=== PATIENT | female | born 1955 | race Caucasian/White ===

== ENCOUNTER 2025-10-11 19:35 | Inpatient (IN) | payer BC, MEDICAID ==
[~2025-10-11] VITALS: Ht 165.1 cm; Wt 80.7 kg
[2025-10-11] MEDS: ALBUTEROL (0.083%) 2.5MG/3ML NEB HHN SCH (20:00)
[2025-10-11] MEDS: IPRATROPIUM BROMIDE (0.02%) 0.5MG/2.5ML NEB HHN SCH (20:00)
[2025-10-11] MEDS ORDERED: METHYLPREDNISOLONE SOD SUCC 125MG/2ML (ACT-O-VIAL) IV ONE (20:00)
[2025-10-11 20:30] VITALS: PULSE 112; RESP 20; O2SAT 93
[2025-10-11 21:09] LABS: BG BASE EXCESS 6.9 mmol/L (-2.0-3.0); BG CARBOXYHEMOGLOBIN 1.7 % (0.5-1.5); BG DEOXYHEMOGLOBIN 6.5 % (0.0-5.0); BG FLOW(L/min) 5.00 L/min; BG FRACTION INSPIRED OXYGEN 40; BG HCO3 ACT 35.9 mmol/L (21.0-28.0); BG METHEMOGLOBIN 0.1 % (0.5-1.5); BG OXYGEN SATURATION 93.4 % (94.0-98.0); BG OXYHEMOGLOBIN 91.7 % (94.0-98.0); BG PCO2 71.2 mmHg (32.0-45.0); BG PH 7.321 (7.350-7.450); BG PO2 68.6 mmHg (83.0-108.0); BG SAMPLE SITE RIGHT RADIAL; BG TOTAL HEMOGLOBIN 15.3 g/dL (12.0-16.0); BG VENT MODE NASAL CANNULA
[2025-10-11 21:16] LABS: HEMATOCRIT. 44.1 % (36.0-48.0); HEMOGLOBIN. 14.5 g/dL (12.0-16.0); MEAN PLATELET VOLUME 8.2 fl (7.4-10.4); PLATELET 187 x1000/uL (130-400); RED BLOOD CELL COUNT 4.95 mill/uL (4.2-5.4); RED CELL DISTRIBUTION WIDTH 14.1 % (11.6-14.6)
[2025-10-11 21:31] LABS: CREATININE 0.8 mg/dL (0.6-1.0); UREA NITROGEN BLOOD 7 mg/dL (9-23)
[2025-10-11 21:32] LABS: PROTEIN TOTAL 7.2 g/dL (6.0-8.3); TROPONIN I HIGH SENSITIVITY < 4 ng/L (3.0-34)
[2025-10-11 21:33] LABS: ASPARTATE AMINOTRANSFERASE 30 IU/L (<34)
[2025-10-11 21:34] LABS: BILIRUBIN DIRECT 0.3 mg/dL (<=3.0); BILIRUBIN TOTAL 0.8 mg/dL (0.1-1.0)
[2025-10-11] MEDS: MAGNESIUM 2 G PREMIX 50 ML IV ONE (22:24)
[2025-10-11] MEDS: METHYLPREDNISOLONE SOD SUCC 125MG/2ML (ACT-O-VIAL) IV NR (22:24)
[2025-10-11 23:00] VITALS: BP 146/75; PULSE 98; RESP 20; TEMP 36.8628
[2025-10-11] MEDS ORDERED: LORAZEPAM 0.5MG TABLET PO PRN (23:00)
[2025-10-11] MEDS ORDERED: IPRATROPIUM/ALBUTEROL 0.5-3(2.5)MG/3ML NEB HHN PRN (23:00)
[2025-10-11] MEDS ORDERED: CLONIDINE 0.1MG TABLET PO PRN (23:00)
[2025-10-11] MEDS ORDERED: DIPHENHYDRAMINE 50MG/ML VIAL IV PRN (23:00)
[2025-10-11] MEDS ORDERED: ACETAMINOPHEN 325MG TABLET PO PRN (23:00)
[2025-10-11] MEDS ORDERED: ONDANSETRON HCL 4MG/2ML INJ IV PRN (23:00)
[2025-10-11] MEDS ORDERED: MAGNESIUM/ALUMINUM HYDROXIDE/SIMETHICONE 30ML UDC PO PRN (23:00)
[2025-10-11] MEDS ORDERED: PROMETHAZINE/DEXTROMETHORPHAN 6.25-15MG/5ML PO PRN (23:00)
[2025-10-11 23:15] LABS: BAND% 2.0 % (1.0-6.0); LYMPHOCYTES % MANUAL 7.0 % (20.0-60.0); MONOCYTES % MANUAL 6.0 % (2.0-8.0); NEUTROPHILS % MANUAL 85.0 % (45.0-75.0); PLATELET ESTIMATE NORMAL
[2025-10-12] VITALS (7 sets, daily range): BP systolic 100–133; BP diastolic 54–73; PULSE 79–92; RESP 17–20; TEMP 36.2–37.1; O2SAT 92–99
[2025-10-12] MEDS: ENOXAPARIN 40MG/0.4ML SYR SUBCUT SCH (00:41)
[2025-10-12] MEDS: GUAIFENESIN 600MG ER TABLET PO SCH (00:41)
[2025-10-12] MEDS ORDERED: QUET200T MT (03:38)
[2025-10-12] MEDS ORDERED: GABA-1180 PO (03:39)
[2025-10-12] MEDS ORDERED: INFLUENZA VACCINE 05/PF 0.5 ML SYRINGE IM ONE (06:30)
[2025-10-12] MEDS ORDERED: PNEUMOCOCCAL 20-VAL CONJ-DIP CRM 0.5ML IM ONE (06:30)
[2025-10-12] MEDS: GABAPENTIN 100MG CAPSULE PO SCH (06:43)
[2025-10-12] MEDS: ACETAMINOPHEN 325MG TABLET PO PRN (06:45)
[2025-10-12] MEDS: SODIUM CHLORIDE 0.9% 3ML FLUSH IVF SCH (06:46)
[2025-10-12] MEDS: METHYLPREDNISOLONE SOD SUCC 125MG/2ML (ACT-O-VIAL) IV SCH (06:46)
[2025-10-12] MEDS: IPRATROPIUM/ALBUTEROL 0.5-3(2.5)MG/3ML NEB HHN SCH (07:48)
[2025-10-12] MEDS: QUETIAPINE FUMARATE 200MG TABLET PO SCH (08:33)
[2025-10-12] MEDS: PANTOPRAZOLE 40MG DR TABLET PO SCH (08:33)
[2025-10-12] MEDS: HYDROCODONE/ACETAMINOPHEN 5/325MG TABLET PO PRN (08:38)
[2025-10-12 08:41] LABS: HEPATITIS C AB NON REACTIVE (Neg) (Negative)
[2025-10-12] MEDS: ZOLPIDEM TARTRATE 5MG TABLET PO PRN (22:09)
[2025-10-13] VITALS (9 sets, daily range): BP systolic 108–133; BP diastolic 55–72; PULSE 77–96; RESP 15–20; TEMP 35.9–36.9; O2SAT 91–98
[2025-10-13] MEDS: PREDNISONE 20MG TABLET PO SCH (21:37)
[2025-10-14] VITALS (11 sets, daily range): BP systolic 103–172; BP diastolic 46–83; PULSE 62–107; RESP 16–22; TEMP 36.1–36.3; O2SAT 93–99
[2025-10-14] MEDS ORDERED: P20 MT (14:21)
== END 2025-10-14 20:35 | disposition home or self-care (01) | DRG 189 ==
LOC: ER 19:35 → 7WST 21:40 → EDBEDREQTM 21:41 → EDBEDREQ 21:41 → ENRESERV 22:08
PROVIDERS: ADMIT Internal Medicine; ATTEND Internal Medicine
DX: J96.21 Acute and chronic respiratory failure with hypoxia (principal); R58 Hemorrhage, not elsewhere classified; J44.1 Chronic obstructive pulmonary disease with (acute) exacerbation; Z99.81 Dependence on supplemental oxygen; F17.210 Nicotine dependence, cigarettes, uncomplicated; S51.812A Laceration without foreign body of left forearm, initial encounter; I10 Essential (primary) hypertension; G62.9 Polyneuropathy, unspecified; W18.39XA Other fall on same level, initial encounter; Y93.89 Activity, other specified; Y92.89 Other specified places as the place of occurrence of the external cause; Y99.8 Other external cause status
CPT/HCPCS: 36415; 36600; 71045; 80048; 80076; 82375; 82805; 83880; 84484; 85025; 86705; 87340; 93005; 94070; 94640; 94664; 98960; 99291; A4606; J1650; J2919; J3475; J7512